=== PATIENT | male | born 2000 | race Caucasian/White ===

== ENCOUNTER 2024-08-21 10:52 | Emergency (ER) | payer MEDICAID ==
[~2024-08-21] VITALS: Ht 182.9 cm; Wt 61.6 kg
[2024-08-21 10:53] VITALS: BP 137/84; PULSE 65; RESP 16; TEMP 98.2; O2SAT 100
[2024-08-21] MEDS ORDERED: MUPI22OI30 TOP (11:22)
[2024-08-21] MEDS ORDERED: SULF1TAB49 PO (11:22)
[2024-08-21] MEDS ORDERED: CHLO118L3 TOP (11:22)
== END 2024-08-21 11:23 | disposition home or self-care (01) ==
LOC: ER 10:52
DX: L02.415 Cutaneous abscess of right lower limb (principal); Z88.8 Allergy status to other drugs, medicaments and biological substances
CPT/HCPCS: 99283